=== PATIENT | female | born 1980 | race Caucasian/White ===

== ENCOUNTER 2025-01-03 21:16 | Emergency (ER) | payer MEDICARE, MEDICAID ==
[~2025-01-03] VITALS: Ht 157.5 cm; Wt 71.4 kg
--- NOTE | 2025-01-03 22:36 | Physician Documentation ---
History of Present Illness ~ Chief Complaint: Hip pain Stated Complaint: HIP PAIN Time Seen by MD: 21:48 HPI Patient is seen today with acute on chronic left-sided hip pain. Patient states she does have chronic injury of her left lower extremity. Patient states she mostly ambulates with her right leg but states that earlier today she began feeling significant pain and muscle spasms of her left hip. Patient denies any saddle anesthesia or changes in bowel or bladder habits. She has no other concern or complaint at this time. Medication Reconciliation Allergies: Coded Allergies: shellfish derived (Verified Allergy, Unknown, VOMITING, 01/03/25) Scheduled Meloxicam (Meloxicam), 1 TAB PO DAILY Methocarbamol (Methocarbamol), 1 TAB PO Q8H Review of Systems Constitutional: Denies: chills, fever, weakness Eyes: Denies: pain, blurred vision ENT: Denies: ear pain, nose pain, throat pain, mouth pain Respiratory: Denies: cough, shortness of breath Cardiovascular: Denies: chest pain, palpitations Gastrointestinal: Denies: abdominal pain, nausea, vomiting Genitourinary: Denies: burning, dysuria Female Genitalia: Denies: vaginal discharge, pelvic pain Neurological: Denies: headache, dizziness Musculoskeletal: Denies: pain, swelling Integumentary: Denies: rash, lesions Allergic/Immunologic: Denies: hives, itching Hematologic/Lymphatic: Denies: no symptoms reported Psychiatric: Denies: depression, anxiety Physical Exam Vital Signs: Temperature: 98.2, Heart Rate: 84, Respiratory Rate: 16, BP: 143/98, Pulse Oximetry: 98, Weight: 71.360 Oxygen Flow Rate: 0 Physical Exam General: Awake and Alert, no acute distress. HEENT: Conjunctiva pink, Sclera clear, Mucus Membranes moist. Neck: Supple without masses and tenderness. Resp: Unlabored. Lungs clear to auscultation bilaterally. Heart: Regular Rate and rhythm, normal S1 and S2 without murmur, rub or gallop. Musculoskeletal: Patient on exam has decreased range of motion of the left hip in flexion-extension. Patient has full range of motion of the right hip. Patient has muscle wasting of the left lower extremity. Patient has good capillary refill distally of the left lower extremity. Patient has obvious chronic deformity of the left lower extremity. Extremities: No cyanosis,clubbing or edema. Skin: Warm and Dry. Progress Results/Orders Results/Orders Completed Orders - SHUN SALCIDO MD Hcg, Ur Ql (01/03/25 22:42) Medications Received in ER Medications (Trade) Dose Ordered Sig/Adam Route PRN Reason Start Time Stop Time Status Last Admin Dose Admin (Toradol inj. 30mg/ml) 30 mg ONCE STAT IM 01/03/25 22:25 01/03/25 22:52 DC 01/03/25 23:10 30 MG (Tylenol tablet) 975 mg ONCE STAT PO 01/03/25 22:28 01/03/25 22:52 DC 01/03/25 23:11 975 MG (Lioresal tablet) 10 mg Q8H PRN PO muscle spasms 01/03/25 22:30 01/04/25 00:03 DC 01/03/25 23:11 10 MG Vital Signs 01/03/25 01/03/25 01/03/25 21:18 21:40 23:59 Temp 98.2 97.8 Pulse 88 84 82 Resp 16 16 14 B/P (MAP) 138/100 143/98 (113) 134/91 Pulse Ox 97 98 98 O2 Flow Rate 0 Laboratory Tests Test 01/03/25 22:54 Urine HCG, Qualitative Negative EKG/XRAY/CT/US/VASC/MRI Bone/Soft Tissue X-Ray (Ext.) : Additional Comment Interpreted by myself today shows no sign of acute fracture with bones in anatomic alignment of the bilateral hips. No osteolytic or blastic lesions. Medical Decision Making Findings Patient is seen today with acute on chronic left-sided hip pain. Patient states she does have chronic injury of her left lower extremity. Patient states she mostly ambulates with her right leg but states that earlier today she began feeling significant pain and muscle spasms of her left hip. Patient denies any saddle anesthesia or changes in bowel or bladder habits. She has no other concern or complaint at this time. Patient was given Toradol 30 mg IM in the ED today along with Tylenol 975 mg by mouth and baclofen 10 mg by mouth. Patient does admit to good response in relief of pain in the left hip shortly after medication administration. Patient did have x-ray of left hip and right hip. I did sign outpatient to Dr. Salcido. I did send prescription of meloxicam 15 mg one tab once a day to be taken with food to patient pharmacy along with methocarbamol 750 mg one tab twi ce a day as needed for muscle spasm. Patient will follow up with primary care in 2-5 days if no better as needed sooner. Return to ED with any worsening, concerning or changing symptoms. Departure Disposition: HOME / SELF CARE / HOMELESS Impression: Primary Impression: Hip pain Qualified Codes: M25.552 - Pain in left hip Condition: Improved Additional Instructions: Patient was given Toradol 30 mg IM in the ED today along with Tylenol 975 mg by mouth and baclofen 10 mg by mouth. Patient does admit to good response in relief of pain in the left hip shortly after medication administration. Patient did have x-ray of left hip and right hip. I did sign outpatient to Dr. Salcido. I did send prescription of meloxicam 15 mg one tab once a day to be taken with food to patient pharmacy along with methocarbamol 750 mg one tab twice a day as needed for muscle spasm. Patient will follow up with primary care in 2-5 days if no better as needed sooner. Return to ED with any worsening, concerning or changing symptoms. Referrals: NO PRIMARY CARE PROVIDER (PCP) Prescriptions Methocarbamol (Methocarbamol) 750 Mg Tablet 1 TAB PO Q8H for 7 Days, #21 TAB 0 Refills Prov: BETTY RAMOS 01/03/25 Meloxicam (Meloxicam) 15 Mg Tablet 1 TAB PO DAILY for 30 Days, #30 TAB 0 Refills Prov: BETTY RAMOS 01/03/25 Signature Scribe Signature: No scribe Attestation: The note accurately reflects work and decisions made by me.Shun Salcido MD 01/04/25 00:53 No scribe BETTY RAMOS Jan 03, 2025 22:36 SHUN SALCIDO MD Jan 04, 2025 00:53
[2025-01-03] MEDS: ketorolac trometh 30MG/ML vial 30 MG/ML VIAL IM STA (23:10)
[2025-01-03 23:19] LABS: URINE HCG NEGATIVE (NEG)
[2025-01-03] MEDS ORDERED: MELO-102 PO (23:34)
[2025-01-03] MEDS ORDERED: METH-798 PO (23:34)
[2025-01-03 23:59] VITALS: BP 134/91; PULSE 82; RESP 14; TEMP 97.8; O2SAT 98
--- NOTE | 2025-01-04 00:02 | RADIOLOGY REPORT ---
EXAM: DI HIP,BI,CMPLT(AP PELVIS) INDICATION: left hip pain TECHNIQUE: 2 views of the bilateral hips were obtained. COMPARISON: None FINDINGS/IMPRESSION: No acute fracture or dislocations. Mild degenerative changes of bilateral hips. No acute soft tissue abnormalities. No radiographic foreign body.
== END 2025-01-04 00:02 | disposition home or self-care (01) ==
LOC: ER 21:17
DX: M25.552 Pain in left hip (principal); Z88.8 Allergy status to other drugs, medicaments and biological substances
CPT/HCPCS: 73521; 81025; 96372; 99284; J1885

== ENCOUNTER 2025-05-04 15:45 | Outpatient (CLI) | payer MEDICARE, MEDICAID ==
[~2025-05-04] VITALS: Ht 152.4 cm; Wt 83.9 kg
[~2025-05-04 15:45] MED LIST: MELO-102 PO; METH-798 PO
[2025-05-04] MEDS: albuterol 2.5 MG/3 ML nebule NEB ONE (16:35)
[2025-05-04 16:37] VITALS: PULSE 86; RESP 16; O2SAT 97
[2025-05-04 17:11] VITALS: PULSE 91; RESP 16
--- NOTE | 2025-05-05 15:50 | PROCEDURE NOTE - Respiratory ---
Procedure Note-Respiratory Providers to CC Copies To 1: JOSE SEARS MD Procedure Name: This is a spirometry study dated May 04, 2025. The spirometry study was performed both before and after bronchodilator administration. Spirometry measurements: There is mild reduction in the forced vital capacity. The FEV1 measurement is normal. The FEV1 ratio is somewhat elevated. All of the flow rate measurements are normal. After bronchodilator was administered, there is no appreciable change in the flow volume curve. Conclusion: The majority of this data is within normal limits. There is no evidence for obstructive ventilatory defect. The reduction in the forced vital capacity suggests borderline restrictive ventilatory defect. We have no previous studies for comparison. KATIE TORRES MD May 05, 2025 15:50
== END 2025-05-04 23:59 | disposition home or self-care (01) ==
LOC: RT 15:45
PROVIDERS: ATTEND Student in an Organized Health Care Education/Training Program
DX: R05.3 Chronic cough (principal)
CPT/HCPCS: 94060; 94760